=== PATIENT | female | born 1990 | race Two or more races ===

== ENCOUNTER 2019-05-27 16:57 | Emergency (ER) | payer OTHER ==
[~2019-05-27] VITALS: Ht 152.4 cm; Wt 102.1 kg
--- NOTE | 2019-05-27 17:11 | NUR ---
ED Nurse Note: Patient slipped and fell over 2 flight of stairs. c/o pain over the left foot and ankle. Cap refill < 3 sec on left toes and +sensation. Patient able to wiggle left toes.Pain, swelling and tenderness over left foot/ankle noted. Elevated the affected extremity with blankets and ice pack applied. No facial or head trauma noted. Reports no other injury.
[2019-05-27] MEDS: Ketorolac 30mg Inj IM ONE (17:20)
--- NOTE | 2019-05-27 17:25 | Emergency Room Report ---
History of Present Illness General Chief Complaint: Lower Extremity Injury Source: Patient (Litzy Domingo) Present Illness HPI 29-year-old female with no significant past medical history here complaining of left ankle pain and swelling after she fell from one stair at work. Incident occurred today patient is rating the pain 11 out of 10 with radiation to toes however denies tingling and numbness. Has not taken medication for pain. Denies all other injuries, chest pain, shortness of breath, palpitation, abdominal pain, nausea vomiting. Patient reports that she was going down the stairs carrying hot thermos when she missed a step and might have had a twisting of her left ankle. Denies head trauma (Litzy Domingo) Allergies: Coded Allergies: LATEX (Verified Allergy, Intermediate, 05/27/19) Patient History Past Medical History: see triage record Past Surgical History: unable to obtain Pertinent Family History: none Now: No - 05/24/19 Immunizations: UTD Reviewed Nursing Documentation: PMH: Agreed; PSxH: Agreed (Litzy Domingo) Nursing Documentation-PMH Past Medical History: No Stated History (Litzy Domingo) Review of Systems All Other Systems: negative except mentioned in HPI (Litzy Domingo) Physical Exam Vital Signs Date Time Temp Pulse Resp B/P (MAP) Pulse Ox O2 Delivery O2 Flow Rate FiO2 05/27/19 16:50 98.1 88 16 124/80 (95) 98 Room Air Sp02 EP Interpretation: reviewed, normal General Appearance: normal inspection, well appearing, no apparent distress Head: normocephalic, atraumatic Eyes: bilateral eye normal inspection, bilateral eye PERRL ENT: normal ENT inspection, normal pharynx Neck: normal inspection, full range of motion, supple Respiratory: normal inspection, chest non-tender, lungs clear, normal breath sounds, no respiratory distress Cardiovascular #1: normal inspection, no edema, no murmur Cardiovascular #2: 2+ dorsalis pedis (R), 2+ dorsalis pedis (L) Gastrointestinal: normal inspection, non tender, soft Genitourinary: no CVA tenderness Musculoskeletal: back normal, non-tender, no calf tenderness, swelling - Left ankle on lateral malleolus Neurologic: normal inspection, alert, oriented x3 Psychiatric: normal inspection, judgement/insight normal, memory normal Skin: no rash, normal color Lymphatic: normal inspection, no adenopathy (Litzy Domingo) Medical Decision Making PA Attestation All diagnoses and treatment plans were reviewed and discussed with my supervising physician Dr. Bartholomew (Litzy Domingo) Diagnostic Impression: Primary Impression: Ankle sprain ER Course 29-year-old female with no significant past medical history here complaining of left ankle pain and swelling after she fell from one stair at work. Incident occurred today patient is rating the pain 11 out of 10 with radiation to toes however denies tingling and numbness. Has not taken medication for pain. Denies all other injuries, chest pain, shortness of breath, palpitation, abdominal pain, nausea vomiting. Patient reports that she was going down the stairs carrying hot thermos when she missed a step and might have had a twisting of her left ankle. Denies head trauma Ddx considered but are not limited to: ankle sprain, ankle strain, ankle fracture, ankle contusion Vital signs: are WNL, pt. is afebrile H&PE are most consistent with: Ankle sprain ORDERS: Ankle x-ray, Toradol, naproxen, Voltaren gel, ED INTERVENTIONS: Bo wrap and crutches DISCHARGE: At this time pt. is stable for d/c to home. Will provide printed patient care instructions, and any necessary prescriptions. Care plan and follow up instructions have been discussed with the patient prior to discharge. I advised the patient to follow-up with her primary care provider for further assessment keep area elevated alternate between icing and heating (Litzy Domingo) Other X-Ray Diagnostic Results Other X-Ray Diagnostic Results : X-Ray ordered: left ankle # of Views/Limited Vs Complete: 3 View Indication: Swelling EP Interpretation: Yes PA Xray: Interpretation reviewed, by supervising MD, and agrees with findings. Interpretation: no dislocation Impression: No acute disease Electronically Signed by: litzy sandoval PA-C (Litzy Domingo) Other X-Ray Diagnostic Results : Electronically Signed by: Mami Torres documentation of Xray reviewed by me and is accurate, Steven Bartholomew MD (Steven Bartholomew MD) Last Vital Signs Date Time Temp Pulse Resp B/P (MAP) Pulse Ox O2 Delivery O2 Flow Rate FiO2 05/27/19 16:50 98.1 88 16 124/80 (95) 98 Room Air (Litzy Domingo) Disposition: HOME, SELF-CARE Condition: Stable Scripts Diclofenac Sodium (VOLTAREN) 100 Gm Gel..gram. 2 GM TP TID, #100 GM Prov: Litzy Domingo 05/27/19 Naproxen* (NAPROXEN*) 500 Mg Tablet 500 MG ORAL TWICE A DAY, #30 TAB Prov: Litzy Domingo 05/27/19 Patient Instructions: Ankle Sprain Additional Instructions: Keep affected area elevated alternate between icing and heating follow-up with your primary care provider Litzy Domingo May 27, 2019 17:25 Steven Bartholomew MD May 28, 2019 04:12
[2019-05-27] MEDS ORDERED: NAPROXEN500 M2 ORAL (17:26)
[2019-05-27] MEDS ORDERED: VOLTAREN100 G1 TP (17:26)
[2019-05-27 17:55] VITALS: BP 124/72
--- NOTE | 2019-05-27 17:55 | NUR ---
ED Nurse Note: Patient is being discharged from medical care. Provided crutches, demonstrated proper use of crutches and patient able to ambulate with steady gait. D/C instruction and prescription given to patient. Bo Wrap applied to left ankle. Patient is going home with father.
--- NOTE | 2019-05-28 11:15 | Diagnostic Imaging Report ---
Indication: left ankle pain Comparison: None Findings: 3 views of the left ankle obtained. Soft tissues are unremarkable. No acute fracture, malalignment, periostitis, or osteochondral defects are identified. Impression: No acute findings
== END 2019-05-27 17:55 | disposition home or self-care (01) ==
LOC: EDBD 16:57 → EMR 17:24
DX: S93.402A Sprain of unspecified ligament of left ankle, initial encounter (principal); W10.9XXA Fall (on) (from) unspecified stairs and steps, initial encounter; Y92.9 Unspecified place or not applicable; Z91.040 Latex allergy status
CPT/HCPCS: 73610; 96372; 99283; J1885